=== PATIENT | female | born 1950 | race Asian ===

== ENCOUNTER 2017-08-07 08:19 | Outpatient (CLI) | payer OTHER | END 2017-08-07 19:06 | disposition home or self-care (01) | LOC: RAD 08:19 | DX: M85.89 Other specified disorders of bone density and structure, multiple sites (principal) ==

== ENCOUNTER 2017-12-10 11:19 | Outpatient (CLI) | payer OTHER | END 2017-12-10 19:50 | disposition home or self-care (01) | LOC: RAD 11:19 | DX: M54.6 Pain in thoracic spine (principal); M06.09 Rheumatoid arthritis without rheumatoid factor, multiple sites ==

== ENCOUNTER 2018-02-27 09:11 | Outpatient (CLI) | payer OTHER | END 2018-02-27 20:23 | disposition home or self-care (01) | LOC: MAMMO 09:11 | DX: Z12.31 Encounter for screening mammogram for malignant neoplasm of breast (principal) ==

== ENCOUNTER 2019-02-17 09:39 | Day surgery (SDC) | payer OTHER ==
[2019-02-17 10:18] LABS: PLATELET COUNT 266 K/uL (152-353)
[2019-02-17 10:26] LABS: POTASSIUM 3.8 mmol/L (3.6-5.2)
== END 2019-02-17 15:07 | disposition home or self-care (01) ==
LOC: OR 09:39
PROVIDERS: Internal Medicine Gastroenterology
PROC: 0DB68ZZ Excision of Stomach, Via Natural or Artificial Opening Endoscopic (ICD-10-PCS; principal; 2019-02-17)
DX: K21.0 Gastro-esophageal reflux disease with esophagitis (principal); K29.50 Unspecified chronic gastritis without bleeding; K25.9 Gastric ulcer, unspecified as acute or chronic, without hemorrhage or perforation; R10.11 Right upper quadrant pain; R10.13 Epigastric pain; Z98.890 Other specified postprocedural states
CPT/HCPCS: 80053; 85027; J2001; J2405; J2704

== ENCOUNTER 2019-03-17 10:25 | Day surgery (SDC) | payer OTHER | END 2019-03-18 15:26 | disposition home or self-care (01) | LOC: OR 10:25 | PROC: 0DJD8ZZ Inspection of Lower Intestinal Tract, Via Natural or Artificial Opening Endoscopic (ICD-10-PCS; principal; 2019-03-17) | DX: K57.30 Diverticulosis of large intestine without perforation or abscess without bleeding (principal); K64.8 Other hemorrhoids; Z12.11 Encounter for screening for malignant neoplasm of colon | CPT/HCPCS: J2001; J2704 ==

== ENCOUNTER 2019-09-08 08:14 | Outpatient (CLI) | payer OTHER | END 2019-09-08 19:45 | disposition home or self-care (01) | LOC: MAMMO 08:14 | DX: Z12.31 Encounter for screening mammogram for malignant neoplasm of breast (principal); M85.89 Other specified disorders of bone density and structure, multiple sites ==

== ENCOUNTER 2019-12-31 11:47 | Outpatient (CLI) | payer OTHER | END 2019-12-31 19:35 | disposition home or self-care (01) | LOC: RAD 11:47 | PROVIDERS: ATTEND Nurse Practitioner Family | DX: M05.79 Rheumatoid arthritis with rheumatoid factor of multiple sites without organ or systems involvement (principal) ==

== ENCOUNTER 2020-04-12 09:33 | Outpatient (CLI) | payer OTHER | END 2020-04-12 21:06 | disposition home or self-care (01) | LOC: RAD 09:33 | PROVIDERS: ATTEND Nurse Practitioner Family | DX: E55.9 Vitamin D deficiency, unspecified (principal); E56.8 Deficiency of other vitamins; M05.79 Rheumatoid arthritis with rheumatoid factor of multiple sites without organ or systems involvement; M85.89 Other specified disorders of bone density and structure, multiple sites; Z79.899 Other long term (current) drug therapy; R20.2 Paresthesia of skin ==

== ENCOUNTER 2020-05-16 15:05 | Outpatient (CLI) | payer OTHER | END 2020-05-16 19:28 | disposition home or self-care (01) | LOC: MRI 15:05 | PROVIDERS: ATTEND Nurse Practitioner Primary Care | DX: R20.2 Paresthesia of skin (principal) ==

== ENCOUNTER → 2021-05-11 | Emergency (ER) | payer OTHER ==
[~2021-05-11] VITALS: Ht 157.5 cm; Wt 619.2 kg
[2021-05-11 00:15] VITALS: BP 131/54; TEMP 98.1
[2021-05-11 00:52] LABS: PLATELET COUNT 249 K/uL (152-353)
[2021-05-11 01:00] LABS: POTASSIUM 3.8 mmol/L (3.6-5.2)
== END ==
LOC: ED 00:07
PROVIDERS: Emergency Medicine
DX: R55 Syncope and collapse (principal); R11.0 Nausea; K44.9 Diaphragmatic hernia without obstruction or gangrene
CPT/HCPCS: 36415; 80053; 83880; 84484; 85027; 93005; 96360; 96374; 99284; J2405

== ENCOUNTER 2021-06-28 08:37 | Outpatient (CLI) | payer OTHER | END 2021-06-28 21:01 | disposition home or self-care (01) | LOC: MAMMO 08:37 | PROVIDERS: ATTEND Nurse Practitioner Primary Care | DX: E55.9 Vitamin D deficiency, unspecified (principal); M05.79 Rheumatoid arthritis with rheumatoid factor of multiple sites without organ or systems involvement; M06.4 Inflammatory polyarthropathy; M79.671 Pain in right foot; M79.672 Pain in left foot; Z79.899 Other long term (current) drug therapy; Z12.31 Encounter for screening mammogram for malignant neoplasm of breast ==

== ENCOUNTER 2021-10-09 08:04 | Outpatient (CLI) | payer OTHER | END 2021-10-09 18:58 | disposition home or self-care (01) | LOC: RAD 08:04 | PROVIDERS: ATTEND Nurse Practitioner Family | DX: E55.9 Vitamin D deficiency, unspecified (principal); E56.8 Deficiency of other vitamins; M05.79 Rheumatoid arthritis with rheumatoid factor of multiple sites without organ or systems involvement; M85.89 Other specified disorders of bone density and structure, multiple sites; Z79.899 Other long term (current) drug therapy ==

== ENCOUNTER 2021-12-18 09:16 | Outpatient (CLI) | payer OTHER | END 2021-12-18 19:14 | disposition home or self-care (01) | LOC: RAD 09:16 | PROVIDERS: ATTEND Nurse Practitioner Family | DX: E55.9 Vitamin D deficiency, unspecified (principal); M05.79 Rheumatoid arthritis with rheumatoid factor of multiple sites without organ or systems involvement; M06.4 Inflammatory polyarthropathy; M19.042 Primary osteoarthritis, left hand; M85.89 Other specified disorders of bone density and structure, multiple sites ==

== ENCOUNTER → 2022-03-19 | Outpatient (CLI) | payer OTHER | LOC: RAD 11:03 | PROVIDERS: ATTEND Nurse Practitioner Family | DX: M05.79 Rheumatoid arthritis with rheumatoid factor of multiple sites without organ or systems involvement (principal); M06.4 Inflammatory polyarthropathy; Z79.622 Long term (current) use of Janus kinase inhibitor; Z79.899 Other long term (current) drug therapy ==

== ENCOUNTER 2022-05-16 08:29 | Outpatient (CLI) | payer OTHER | END 2022-05-16 17:00 | disposition home or self-care (01) | LOC: MRI 08:29 | PROVIDERS: ATTEND Nurse Practitioner Family | DX: M15.4 Erosive (osteo)arthritis (principal) ==

== ENCOUNTER 2022-06-26 12:48 | Outpatient (CLI) | payer OTHER | END 2022-06-26 20:40 | disposition home or self-care (01) | LOC: MRI 12:48 | PROVIDERS: ATTEND Nurse Practitioner Family | DX: M15.4 Erosive (osteo)arthritis (principal) | CPT/HCPCS: 36415; 82565; 84520; A9576 ==

== ENCOUNTER 2022-10-21 10:55 | Outpatient (CLI) | payer OTHER | END 2022-10-21 19:08 | disposition home or self-care (01) | LOC: RAD 10:55 | PROVIDERS: ATTEND Nurse Practitioner Family | DX: M25.532 Pain in left wrist (principal) ==

== ENCOUNTER 2023-03-27 14:23 | Outpatient (CLI) | payer OTHER | END 2023-03-27 19:33 | disposition home or self-care (01) | LOC: RAD 14:23 | PROVIDERS: ATTEND Nurse Practitioner Family | DX: E56.8 Deficiency of other vitamins (principal); M05.79 Rheumatoid arthritis with rheumatoid factor of multiple sites without organ or systems involvement; M06.09 Rheumatoid arthritis without rheumatoid factor, multiple sites; M85.89 Other specified disorders of bone density and structure, multiple sites; Z79.899 Other long term (current) drug therapy ==